=== PATIENT | male | born 1955 | race Hispanic/Latino ===

== ENCOUNTER → 2016-10-06 | Day surgery (SDC) | payer OTHER ==
[~2016-10-06] VITALS: Ht 167.6 cm; Wt 74.4 kg
[~2016-10-06] MED LIST: CIPRO 500MG TA500 MG PO; JANUMET 50-1,01 EACH PO; LIPITOR10 M1 PO; LISINOPRIL20 M1 PO; MOBIC15 MG PO
--- NOTE | 2016-10-06 11:36 | Operative Report ---
Operative/Inv Procedure Report Surgery Date: 10/06/16 Name of Procedure: Laparoscopic bilateral inguinal hernia repair Pre-Operative Diagnosis: Bilateral inguinal hernia Post-Operative Diagnosis: Same Estimated Blood Loss: scant Surgeon/Batch Blender: PABLO CROCKER,CATHERINE Callahan/Barrera PLATT Anesthesia: general endotracheal tube Implants: Parietex mesh Operative/Procedure Note Note: After consent patient is brought to the operating room laid supine. General anesthesia was obtained and the abdomen was prepped and draped. Skin was anesthetized with local anesthesia and a transverse infraumbilical incision made sharply. We identified the rectus fascia and incised transversely. Stay sutures were placed. Rectus muscle was retracted laterally and a dissecting balloon placed posterior to it. It was inflated under direct vision the camera and replaced with a blunt Henderson port. Gas was instilled. 2, 5 mm ports were placed in the infraumbilical midline after local anesthesia was instilled and under direct vision and camera. Began our dissection on the right side at the pubis and delineated the symphysis. Miguel's ligament was identified and cleared. Then dissected laterally and developed the iliopubic tract. The cord structures were circumferentially dissected. There was a large indirect sac with associated cord lipoma. These structures were dissected free from the cord structures and reflected medially. Once the dissection was completed a right- sided piece of Parietex mesh was placed in the cavity. It was placed around the cord structures re-create the internal ring and cover the femoral and direct spaces as well. The mesh was tacked superior medially to keep it in position while we turned attention to the contralateral side. In a similar fashion dissection was carried forth. There was a direct hernia which was delivered and reflected inferiorly. There is no indirect hernia. The cord structures were dissected in a similar fashion and left-sided Parietex mesh placed as well. Once were happy with the placement of both mesh, the gas was allowed to escape on maintaining proper orientation of the mesh. The fascia was closed with 0 Vicryl suture. Skin incisions closed with 4-0 Vicryl. Steri-Strips and sterile dressing applied. Sponge and needle counts are correct. Findings: Indirect right, direct left CC: JESUS CROCKER,HEMALATHA
== END ==
LOC: STS 01:43
DX: K40.20 Bilateral inguinal hernia, without obstruction or gangrene, not specified as recurrent (principal); I10 Essential (primary) hypertension; E11.9 Type 2 diabetes mellitus without complications; Z79.84 Long term (current) use of oral hypoglycemic drugs; M19.90 Unspecified osteoarthritis, unspecified site
CPT/HCPCS: 93005; 93010; C1781; J0131; J0690; J2250